=== PATIENT | male | born 1965 | race Caucasian/White ===

== ENCOUNTER → 2023-06-18 08:13 | Outpatient (REF) | payer OTHER, SELFPAY | LOC: DHCBS HW 08:13 | PROVIDERS: ATTENDING PHYSICIAN Internal Medicine Cardiovascular Disease; FAMILY PHYSICIAN Nurse Practitioner | DX: R07.89 Other chest pain (principal) | CPT/HCPCS: 93306 ==

== ENCOUNTER → 2023-06-25 12:55 | Outpatient (REF) | payer OTHER, SELFPAY | LOC: RCS 12:55 | PROVIDERS: ATTENDING PHYSICIAN Internal Medicine Cardiovascular Disease; FAMILY PHYSICIAN Nurse Practitioner | DX: R07.89 Other chest pain (principal) | CPT/HCPCS: 93017 ==